=== PATIENT | male | born 1970 | race American Indian/Alaskan Native ===

== ENCOUNTER 2018-02-03 13:44 | Inpatient (IN) | payer SELFPAY ==
[2018-02-03 15:02] LABS: Basophils % (Auto) 0.5 % (0.0-1.8); Eosinophils # (Auto) 0.2 K/mm3 (0.0-0.4); Eosinophils % (Auto) 1.8 % (0.0-4.3); Hematocrit 40.6 % (35.5-45.6); Hemoglobin 14.4 gm/dl (11.8-15.2); Lymphocytes % (Auto) 10.8 % (13.4-35.0); Mean Corpuscular HGB Conc 35 % (32-34); Mean Corpuscular Hemoglobin 32 pg (28-32); Mean Corpuscular Volume 90 fl (84-94); Monocytes # (Auto) 0.5 K/mm3 (0.0-0.8); Monocytes % (Auto) 5.7 % (0.0-7.3); Platelet Count 290 K/mm3 (140-440); Red Blood Count 4.49 M/mm3 (3.65-5.03); Red Cell Distribution Width 12.6 % (13.2-15.2)
--- NOTE | 2018-02-03 15:20 | XRay Report ---
RIGHT FEMUR: HISTORY: Swelling, pain. AP and lateral views of the femur demonstrate normal mineralization and contours for this patient's age. No destructive changes are noted and the adjacent soft tissues are normal. An external fixator device is noted in the distal femur transversing the knee. IMPRESSION: No acute process is identified.
[2018-02-03 15:23] LABS: Alanine Aminotransferase 15 units/L (7-56); Albumin 4.1 g/dL (3.9-5); BUN/Creatinine Ratio 11; Blood Urea Nitrogen 11 mg/dL (9-20); Calcium 9.9 mg/dL (8.4-10.2); Hemolysis Index 5
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
[2018-02-03] MEDS ORDERED: DILAUDID ONE (17:35)
[2018-02-03] MEDS ORDERED: DILAUDID IV ONE ×2 (17:47→19:20)
[2018-02-03] MEDS ORDERED: VANCOMYCIN/NS 1 GM/250 ML 1 GM/250 ML BAG IV ONE ×2 (17:57→20:00)
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
[2018-02-03] MEDS ORDERED: ZOSYN/NS 4.5GM/100ML 4.5 GM/100 ML VIAL IV SCH (19:00)
[2018-02-03] MEDS ORDERED: NACL 0.9% 1000 ML 1,000 ML ONE (19:11)
[2018-02-03] MEDS ORDERED: TYLENOL PO PRN (19:18)
[2018-02-03] MEDS ORDERED: SODIUM CHLORIDE FLUSH SYRINGE 10 ML IV PRN (19:18)
[2018-02-03] MEDS ORDERED: ZOFRAN IV PRN (19:18)
[2018-02-03] MEDS ORDERED: CALCIUM GLUCONATE 2,000 MG in NACL 0.9% 100 ML IV ONE (19:21)
[2018-02-03] MEDS ORDERED: NACL 0.9% 1000 ML 1,000 ML IV ONE (19:21)
--- NOTE | 2018-02-03 19:30 | XRay Report ---
FINAL REPORT EXAM: XR TIBIA FIBULA 2V RT HISTORY: leg pain in the right tibia TECHNIQUE: AP and lateral views of the right tibia and fibula PRIORS: None. FINDINGS: There is an external fixation device over the distal femur and tibia. There is an acute comminuted fracture involving the proximal tibia. One of the fractures extends to the tibial spines at the tibial plateau. Fracture fragments are in satisfactory alignment. No comparison studies are available to determine amounts of healing. IMPRESSION: Comminuted fracture involving the proximal tibia. External fixation device is present over the distal femur and tibia. Fracture fragments are in satisfactory alignment
[2018-02-03] MEDS ORDERED: UNASYN/NS 3 GM/100 ML 3 GM/100 ML BAG IV SCH (20:00)
[2018-02-03] MEDS ORDERED: VANCOMYCIN PHARMACY TO DOSE IV SCH (20:00)
[2018-02-03] MEDS: DILAUDID IV PRN (22:12)
[2018-02-03] MEDS: NACL 0.9% 1000 ML 1,000 ML IV SCH (22:12)
[2018-02-03] MEDS: SODIUM CHLORIDE FLUSH SYRINGE 10 ML IV SCH (22:13)
[2018-02-03] MEDS: UNASYN/NS 3 GM/100 ML 3 GM/100 ML BAG IV SCH (23:33)
[2018-02-04] MEDS: DILAUDID IV PRN ×7 (04:11→23:19)
[2018-02-04 05:04] LABS: BUN/Creatinine Ratio 13; Blood Urea Nitrogen 14 mg/dL (9-20); Hemolysis Index 1
[2018-02-04] MEDS: UNASYN/NS 3 GM/100 ML 3 GM/100 ML BAG IV SCH ×4 (06:13→23:24)
[2018-02-04] MEDS: SODIUM CHLORIDE FLUSH SYRINGE 10 ML IV SCH ×2 (09:57→23:22)
[2018-02-04] MEDS: LOVENOX SUB-Q SCH (09:59)
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
[2018-02-04] MEDS: NACL 0.9% 1000 ML 1,000 ML IV SCH (16:55)
[2018-02-05] MEDS: AMBIEN PO PRN ×2 (00:39→21:28)
[2018-02-05] MEDS: DILAUDID IV PRN ×6 (02:27→20:19)
[2018-02-05 03:38] LABS: Hematocrit 37.7 % (35.5-45.6); Mean Corpuscular HGB Conc 35 % (32-34); Mean Corpuscular Hemoglobin 31 pg (28-32); Mean Corpuscular Volume 91 fl (84-94); Platelet Count 309 K/mm3 (140-440); Red Blood Count 4.15 M/mm3 (3.65-5.03); Red Cell Distribution Width 12.3 % (13.2-15.2)
[2018-02-05 04:07] LABS: BUN/Creatinine Ratio 14; Blood Urea Nitrogen 11 mg/dL (9-20); Hemolysis Index 2
[2018-02-05] MEDS: NACL 0.9% 1000 ML 1,000 ML IV SCH (06:34)
[2018-02-05] MEDS: UNASYN/NS 3 GM/100 ML 3 GM/100 ML BAG IV SCH ×2 (06:35→12:17)
[2018-02-05] MEDS: LOVENOX SUB-Q SCH (10:45)
[2018-02-05] MEDS: PERCOCET 5/325 PO PRN ×3 (12:30→21:27)
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
[2018-02-05] MEDS ORDERED: VANCOMYCIN PHARMACY TO DOSE IV SCH (14:00)
[2018-02-05] MEDS ORDERED: VANCOMYCIN 1,250 MG in NACL 0.9% 250ML 250 ML IV ONE (15:00)
[2018-02-05] MEDS: SODIUM CHLORIDE FLUSH SYRINGE 10 ML IV SCH (17:40)
[2018-02-06] MEDS: PERCOCET 5/325 PO PRN ×2 (05:23→14:17)
[2018-02-06] MEDS: VANCOMYCIN/NS 1 GM/250 ML 1 GM/250 ML BAG IV SCH ×2 (06:49→14:17)
[2018-02-06] MEDS: LOVENOX SUB-Q SCH (10:18)
[2018-02-06] MEDS: SODIUM CHLORIDE FLUSH SYRINGE 10 ML IV SCH (10:19)
[2018-02-06] MEDS: DILAUDID IV PRN (10:49)
[2018-02-06 13:49] VITALS: BP 108/75
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
== END 2018-02-06 17:50 | disposition home or self-care (01) | DRG 560 ==
LOC: ED 13:44 → 3B-SURG 19:18
PROVIDERS: ADMIT Internal Medicine; ATTEND Internal Medicine
DX: T84.7XXA Infection and inflammatory reaction due to other internal orthopedic prosthetic devices, implants and grafts, initial encounter (principal); S82.154A Nondisplaced fracture of right tibial tuberosity, initial encounter for closed fracture; E87.5 Hyperkalemia; Y83.8 Other surgical procedures as the cause of abnormal reaction of the patient, or of later complication, without mention of misadventure at the time of the procedure; T84.622A Infection and inflammatory reaction due to internal fixation device of right tibia, initial encounter; B95.61 Methicillin susceptible Staphylococcus aureus infection as the cause of diseases classified elsewhere; Z82.49 Family history of ischemic heart disease and other diseases of the circulatory system; V64.5XXA Driver of heavy transport vehicle injured in collision with heavy transport vehicle or bus in traffic accident, initial encounter; Y93.89 Activity, other specified; Y92.098 Other place in other non-institutional residence as the place of occurrence of the external cause; Y99.8 Other external cause status
CPT/HCPCS: 36415; 80048; 80053; 82140; 83036; 85025; 85027; 87040; 87076; 87116; 87186; 96361; 96365; 96375; 96376; J0295; J0610; J1170; J1650; J2405; J2543; J3370; J7030; J7050

== ENCOUNTER 2018-02-14 13:48 | Emergency (ER) | payer SELFPAY ==
[2018-02-14 14:00] VITALS: BP 124/83
[2018-02-14] MEDS ORDERED: NACL 0.9% 1000 ML 1,000 ML IV ONE (14:00)
[2018-02-14 14:25] LABS: Basophils % (Auto) 0.3 % (0.0-1.8); Eosinophils # (Auto) 0.1 K/mm3 (0.0-0.4); Eosinophils % (Auto) 1.1 % (0.0-4.3); Hematocrit 36.2 % (35.5-45.6); Lymphocytes % (Auto) 7.5 % (13.4-35.0); Mean Corpuscular HGB Conc 36 % (32-34); Mean Corpuscular Hemoglobin 32 pg (28-32); Mean Corpuscular Volume 88 fl (84-94); Monocytes # (Auto) 0.6 K/mm3 (0.0-0.8); Monocytes % (Auto) 4.5 % (0.0-7.3); Platelet Count 481 K/mm3 (140-440); Red Blood Count 4.11 M/mm3 (3.65-5.03); Red Cell Distribution Width 12.4 % (13.2-15.2)
[2018-02-14 14:35] LABS: INR 1.14 (0.87-1.13)
[2018-02-14 14:36] LABS: Partial Thromboplastin Time 33.8 Sec. (24.2-36.6)
[2018-02-14 14:44] LABS: Alanine Aminotransferase 17 units/L (7-56); Albumin 3.9 g/dL (3.9-5); BUN/Creatinine Ratio 10; Blood Urea Nitrogen 8 mg/dL (9-20); Calcium 9.7 mg/dL (8.4-10.2); Hemolysis Index 8; Lipase 15 units/L (13-60)
== END 2018-02-14 17:05 | disposition left against medical advice (07) ==
LOC: ED 13:48
DX: K92.1 Melena (principal); Z53.21 Procedure and treatment not carried out due to patient leaving prior to being seen by health care provider
CPT/HCPCS: 36415; 80053; 83690; 85025; 85610; 85730; 86850; 86900; 86901